=== PATIENT | male | born 1995 | race Caucasian/White ===

== ENCOUNTER 2020-02-13 18:18 | Emergency (ER) | payer SELFPAY ==
[~2020-02-13] VITALS: Ht 180.3 cm; Wt 72.7 kg
[~2020-02-13 18:18] MED LIST: ATIVAN2 MG OR; BENADRYL25 MG OR; CATAPRES0.2 MG PO; CLONIDINE0.1 MG PO; DIVALPROEX500 MG PO; GEODON60 MG OR; LEVOTHROID50 MCG PO; LEVOTHYROXIN50 MC1 PO; LITHIUM CARB300 MG PO; RISPERDAL3 MG OR; SEROQUEL XR150 MG PO; SEROQUEL100 MG PO; ZOFRAN4 MG/TAB PO
[2020-02-13 19:55] LABS: IMMATURE GRANULOCYTES 0.3 % (0.0-5.0); MEAN CELL VOLUME 86.5 fL CALC (80.0-100.0); MEAN CORPUSCULAR HGB 30.3 pG CALC (26.0-32.0); NEUT# 6.26 thou/uL (1.82-7.42); RED BLOOD COUNT 4.23 mill/uL (4.70-6.10); RED CELL DISTRI WIDTH 11.9 % (11.5-15.5)
[2020-02-13 19:58] LABS: HEMATOCRIT 36.6 % (39.0-50.0); HEMOGLOBIN 12.8 g/dl (14.0-18.0)
[2020-02-13 20:12] LABS: ALBUMIN 4.5 g/dL (3.2-5.0); ALKALINE PHOSPHATASE 69 u/l (38-126); AMYLASE 62 u/l (30-110); ANION GAP 10 (6-22 (CALC)); BUN 17 mg/dL (9-20); BUN/CREATININE RATIO 22 (12-20 (CALC)); CARBON DIOXIDE 25 mmol/l (22-30); CHLORIDE 103 mmol/l (95-108); CREATININE 0.8 mg/dL (0.7-1.3); GFR > 60 ML/MIN (>=60 (CALC)); GFR FOR AFR.AMER. > 60 ML/MIN (>=60 (CALC)); LIPASE 67 u/l (23-300); POTASSIUM 3.4 mmol/l (3.5-5.1); SGOT/AST 28 u/l (17-59); SODIUM 135 mmol/l (137-146)
[2020-02-13 20:16] LABS: BILIRUBIN, TOTAL 0.9 mg/dL (0.0-1.4)
[2020-02-13] MEDS ORDERED: PHENERGAN25 MG/TAB PO (21:06)
[2020-02-13 21:34] VITALS: BP 106/55
== END 2020-02-13 21:34 | disposition home or self-care (01) | DRG 392 ==
LOC: ED 18:18
PROVIDERS: Family Medicine
DX: A08.4 Viral intestinal infection, unspecified (principal); F17.200 Nicotine dependence, unspecified, uncomplicated

== ENCOUNTER → 2021-08-03 | Day surgery (SDC) | payer SELFPAY ==
[~2021-08-03] VITALS: Ht 190.5 cm; Wt 72.0 kg
[~2021-08-03] MED LIST changes: +Levaquin PO; +PERCOCET 5/321 COMBO PO; +PHENERGAN25 MG/TAB PO; +TYLENOL500 MG PO
[2021-08-03 06:24] LABS: HEMATOCRIT 41.7 % (39.0-50.0); HEMOGLOBIN 14.6 g/dl (14.0-18.0); IMMATURE GRANULOCYTES 0.2 % (0.0-5.0); MEAN CELL VOLUME 88.5 fL CALC (80.0-100.0); NEUT# 12.67 thou/uL (1.82-7.42); RED BLOOD COUNT 4.71 mill/uL (4.70-6.10); RED CELL DISTRI WIDTH 12.3 % (11.5-15.5)
[2021-08-03 06:40] LABS: ALKALINE PHOSPHATASE 65 u/l (38-126); AMYLASE 64 u/l (30-110); ANION GAP 14 (6-22 (CALC)); BILIRUBIN, TOTAL 0.9 mg/dL (0.0-1.4); BUN 15 mg/dL (9-20); BUN/CREATININE RATIO 15 (12-20 (CALC)); CARBON DIOXIDE 20 mmol/l (22-30); CHLORIDE 106 mmol/l (95-108); ETHYL ALCOHOL 0 mg/dl (0-30); GFR > 60 ML/MIN (>=60 (CALC)); GFR FOR AFR.AMER. > 60 ML/MIN (>=60 (CALC)); LIPASE 88 u/l (23-300); POTASSIUM 3.5 mmol/l (3.5-5.1); SGOT/AST 27 u/l (17-59); SODIUM 138 mmol/l (137-146); TOTAL PROTEIN 6.9 g/dL (6.3-8.2)
[2021-08-03 09:22] LABS: URINE BILIRUBIN - DIPSTICK NEGATIVE (NEGATIVE); URINE BLOOD DIPSTICK NEGATIVE (NEGATIVE); URINE COLOR YELLOW; URINE GLUCOSE - DIPSTICK NEGATIVE (NEGATIVE); URINE KETONE 40 mg/dL (NEGATIVE); URINE LEUK ESTERASE NEGATIVE (NEGATIVE); URINE PROTEIN - DIPSTICK NEGATIVE (NEG-TRACE); URINE SPECIFIC GRAVITY 1.015; URINE UROBILINOGEN - DIPSTICK 0.2 E.U./dL (0.2)
[2021-08-03 09:23] LABS: URINE NITRITE - DIPSTICK NEGATIVE (Negative)
[2021-08-03 15:19] VITALS: BP 116/59
== END | disposition home or self-care (01) | DRG 343 ==
LOC: ED 05:37 → ED-I 08:00 → ED 08:41 → ORM 08:42
PROVIDERS: ATTEND Surgery
PROC: 0DTJ4ZZ Resection of Appendix, Percutaneous Endoscopic Approach (ICD-10-PCS; principal; 2021-08-03)
DX: K37 Unspecified appendicitis (principal); F31.9 Bipolar disorder, unspecified; F17.200 Nicotine dependence, unspecified, uncomplicated
CPT/HCPCS: J0131; Q9967

== ENCOUNTER 2021-08-11 13:15 | Emergency (ER) | payer SELFPAY ==
[~2021-08-11] VITALS: Ht 190.5 cm; Wt 72.7 kg
[~2021-08-11 13:15] MED LIST changes: -Levaquin PO; -TYLENOL500 MG PO
[2021-08-11] MEDS ORDERED: TYLENOL500 MG PO (14:03)
[2021-08-11 14:06] LABS: URINE BILIRUBIN - DIPSTICK NEGATIVE (NEGATIVE); URINE BLOOD DIPSTICK NEGATIVE (NEGATIVE); URINE COLOR YELLOW; URINE GLUCOSE - DIPSTICK NEGATIVE (NEGATIVE); URINE KETONE NEGATIVE (NEGATIVE); URINE LEUK ESTERASE NEGATIVE (NEGATIVE); URINE PH 8.5 (4.5-8.0); URINE PROTEIN - DIPSTICK NEGATIVE (NEG-TRACE); URINE SPECIFIC GRAVITY 1.015; URINE UROBILINOGEN - DIPSTICK 0.2 E.U./dL (0.2)
[2021-08-11 14:10] LABS: URINE NITRITE - DIPSTICK NEGATIVE (Negative)
[2021-08-11 14:22] LABS: IMMATURE GRANULOCYTES 0.1 % (0.0-5.0); MEAN CELL VOLUME 89.7 fL CALC (80.0-100.0); MEAN CORPUSCULAR HGB 30.6 pG CALC (26.0-32.0); MEAN CORPUSCULAR HGB CONC 34.1 g/dL CAL (32.0-36.0); NEUT# 5.66 thou/uL (1.82-7.42); RED BLOOD COUNT 4.57 mill/uL (4.70-6.10); RED CELL DISTRI WIDTH 12.5 % (11.5-15.5)
[2021-08-11 14:40] LABS: ALBUMIN 4.3 g/dL (3.2-5.0); ALKALINE PHOSPHATASE 52 u/l (38-126); AMYLASE 80 u/l (30-110); ANION GAP 13 (6-22 (CALC)); BILIRUBIN, TOTAL 0.5 mg/dL (0.0-1.4); BUN 12 mg/dL (9-20); BUN/CREATININE RATIO 15 (12-20 (CALC)); CARBON DIOXIDE 24 mmol/l (22-30); CHLORIDE 104 mmol/l (95-108); CREATININE 0.8 mg/dL (0.7-1.3); GFR > 60 ML/MIN (>=60 (CALC)); GFR FOR AFR.AMER. > 60 ML/MIN (>=60 (CALC)); LIPASE 49 u/l (23-300); POTASSIUM 3.5 mmol/l (3.5-5.1); SGOT/AST 27 u/l (17-59); SODIUM 137 mmol/l (137-146); TOTAL PROTEIN 7.6 g/dL (6.3-8.2)
[2021-08-11 14:44] LABS: ACT PARTIAL THROMBO TIME 25.6 SECONDS (20.0-32.5); INTERNATIONAL NORMALIZED RATIO 1.1 RATIO (0.7-1.3)
[2021-08-11] MEDS ORDERED: PERCOCET 5/321 COMBO PO (16:06)
[2021-08-11] MEDS ORDERED: Levaquin PO (16:06)
[2021-08-11 17:08] VITALS: BP 117/74
--- NOTE | 2021-08-13 13:12 | NUR ---
PRELIM BLOOD CULTURE SHOWS BACILLUS SPECIES IN 1 ANAEROBIC BOTTLE. PER MAHI IN LAB, THIS IS A CONTAMINANT.
== END 2021-08-11 17:08 | disposition home or self-care (01) | DRG 947 ==
LOC: ED 13:15
DX: G89.18 Other acute postprocedural pain (principal); J95.89 Other postprocedural complications and disorders of respiratory system, not elsewhere classified; J18.9 Pneumonia, unspecified organism; F17.200 Nicotine dependence, unspecified, uncomplicated; F31.9 Bipolar disorder, unspecified; Y83.6 Removal of other organ (partial) (total) as the cause of abnormal reaction of the patient, or of later complication, without mention of misadventure at the time of the procedure; Z88.0 Allergy status to penicillin; Z20.822 Contact with and (suspected) exposure to COVID-19
CPT/HCPCS: J1956; Q9967

== ENCOUNTER 2021-11-27 00:37 | Emergency (ER) | payer SELFPAY ==
[~2021-11-27] VITALS: Ht 190.5 cm; Wt 73.0 kg
[~2021-11-27 00:37] MED LIST changes: +Levaquin PO; +TYLENOL500 MG PO
[2021-11-27 01:11] LABS: HEMATOCRIT 41.6 % (39.0-50.0); HEMOGLOBIN 14.8 g/dl (14.0-18.0); IMMATURE GRANULOCYTES 0.6 % (0.0-5.0); MEAN CELL VOLUME 88.5 fL CALC (80.0-100.0); MEAN CORPUSCULAR HGB 31.5 pG CALC (26.0-32.0); MEAN CORPUSCULAR HGB CONC 35.6 g/dL CAL (32.0-36.0); NEUT# 9.86 thou/uL (1.82-7.42); RED BLOOD COUNT 4.7 mill/uL (4.70-6.10); RED CELL DISTRI WIDTH 11.8 % (11.5-15.5)
[2021-11-27 01:21] LABS: ALBUMIN 4.2 g/dL (3.2-5.0); AMYLASE 87 u/l (30-110); ANION GAP 12 (6-22 (CALC)); BILIRUBIN, TOTAL 0.3 mg/dL (0.0-1.4); BUN 11 mg/dL (9-20); BUN/CREATININE RATIO 16 (12-20 (CALC)); CARBON DIOXIDE 23 mmol/l (22-30); CHLORIDE 106 mmol/l (95-108); CREATININE 0.7 mg/dL (0.7-1.3); GFR > 60 ML/MIN (>=60 (CALC)); GFR FOR AFR.AMER. > 60 ML/MIN (>=60 (CALC)); LIPASE 50 u/l (23-300); POTASSIUM 3.5 mmol/l (3.5-5.1); SGOT/AST 28 u/l (17-59); SODIUM 137 mmol/l (137-146); TOTAL PROTEIN 7.8 g/dL (6.3-8.2)
[2021-11-27 01:22] LABS: ALKALINE PHOSPHATASE 86 u/l (38-126)
[2021-11-27 01:35] LABS: MYOGLOBIN 52 ng/mL (0 - 121)
[2021-11-27 03:22] LABS: URINE BILIRUBIN - DIPSTICK NEGATIVE (NEGATIVE); URINE BLOOD DIPSTICK TRACE-INTACT (NEGATIVE); URINE COLOR YELLOW; URINE GLUCOSE - DIPSTICK NEGATIVE (NEGATIVE); URINE KETONE TRACE mg/dL (NEGATIVE); URINE LEUK ESTERASE NEGATIVE (NEGATIVE); URINE PROTEIN - DIPSTICK NEGATIVE (NEG-TRACE); URINE SPECIFIC GRAVITY 1.015; URINE UROBILINOGEN - DIPSTICK 0.2 E.U./dL (0.2)
[2021-11-27 03:26] LABS: URINE NITRITE - DIPSTICK NEGATIVE (Negative)
[2021-11-27] MEDS ORDERED: NAPROXEN500 MG PO (03:46)
[2021-11-27] MEDS ORDERED: CYCLOBENZAPRINE10 MG PO (03:46)
[2021-11-27] MEDS ORDERED: CARAFATE PO (03:46)
[2021-11-27] MEDS ORDERED: PREVACID30 M3 PO (03:46)
[2021-11-27 04:02] VITALS: BP 129/87
== END 2021-11-27 04:15 | disposition home or self-care (01) | DRG 392 ==
LOC: ED 00:37
PROVIDERS: Emergency Medicine
DX: K29.70 Gastritis, unspecified, without bleeding (principal); M48.061 Spinal stenosis, lumbar region without neurogenic claudication; F19.10 Other psychoactive substance abuse, uncomplicated; F17.210 Nicotine dependence, cigarettes, uncomplicated; F31.9 Bipolar disorder, unspecified
CPT/HCPCS: Q9967; S0164

== ENCOUNTER 2021-11-28 20:46 | Emergency (ER) | payer SELFPAY ==
[~2021-11-28] VITALS: Ht 190.5 cm; Wt 75.0 kg
[2021-11-28] VITALS (8 sets, daily range): BP systolic 114–124; BP diastolic 70–85
[~2021-11-28 20:46] MED LIST changes: +CARAFATE PO; +CYCLOBENZAPRINE10 MG PO; +NAPROXEN500 MG PO; +PREVACID30 M3 PO
[2021-11-28 21:22] LABS: HEMOGLOBIN 14.6 g/dl (14.0-18.0); IMMATURE GRANULOCYTES 0.5 % (0.0-5.0); MEAN CELL VOLUME 89.1 fL CALC (80.0-100.0); MEAN CORPUSCULAR HGB 31.7 pG CALC (26.0-32.0); MEAN CORPUSCULAR HGB CONC 35.6 g/dL CAL (32.0-36.0); NEUT# 6.75 thou/uL (1.82-7.42); RED BLOOD COUNT 4.6 mill/uL (4.70-6.10); RED CELL DISTRI WIDTH 12.2 % (11.5-15.5)
[2021-11-28 21:23] LABS: URINE BILIRUBIN - DIPSTICK NEGATIVE (NEGATIVE); URINE BLOOD DIPSTICK SMALL (NEGATIVE); URINE COLOR YELLOW; URINE GLUCOSE - DIPSTICK NEGATIVE (NEGATIVE); URINE KETONE NEGATIVE (NEGATIVE); URINE LEUK ESTERASE NEGATIVE (NEGATIVE); URINE PROTEIN - DIPSTICK NEGATIVE (NEG-TRACE); URINE SPECIFIC GRAVITY 1.025
[2021-11-28 21:24] LABS: URINE NITRITE - DIPSTICK NEGATIVE (Negative)
[2021-11-28 21:31] LABS: URINE WBC 0-2 WBC/hpf (0-5)
[2021-11-28 21:34] LABS: ALKALINE PHOSPHATASE 81 u/l (38-126); AMYLASE 94 u/l (30-110); ANION GAP 15 (6-22 (CALC)); BILIRUBIN, TOTAL 0.2 mg/dL (0.0-1.4); BUN 14 mg/dL (9-20); BUN/CREATININE RATIO 16 (12-20 (CALC)); CARBON DIOXIDE 23 mmol/l (22-30); CHLORIDE 103 mmol/l (95-108); CREATININE 0.8 mg/dL (0.7-1.3); ETHYL ALCOHOL 0 mg/dl (0-30); GFR > 60 ML/MIN (>=60 (CALC)); GFR FOR AFR.AMER. > 60 ML/MIN (>=60 (CALC)); LIPASE 122 u/l (23-300); POTASSIUM 3.3 mmol/l (3.5-5.1); SGOT/AST 69 u/l (17-59); SODIUM 138 mmol/l (137-146); TOTAL PROTEIN 7.3 g/dL (6.3-8.2)
[2021-11-29] MEDS ORDERED: ZOFRAN4 MG/TAB PO (00:04)
[2021-11-29 00:08] VITALS: BP 115/78
== END 2021-11-29 00:16 | disposition home or self-care (01) | DRG 392 ==
LOC: ED 20:46
DX: R10.12 Left upper quadrant pain (principal); F15.10 Other stimulant abuse, uncomplicated; F12.10 Cannabis abuse, uncomplicated; E86.0 Dehydration; F31.9 Bipolar disorder, unspecified; F17.200 Nicotine dependence, unspecified, uncomplicated; Z91.14 Patient's other noncompliance with medication regimen; Z20.822 Contact with and (suspected) exposure to COVID-19
CPT/HCPCS: Q9967; S0164

== ENCOUNTER 2022-02-06 00:40 | Emergency (ER) | payer SELFPAY ==
[~2022-02-06] VITALS: Ht 190.5 cm; Wt 70.5 kg
[2022-02-06 00:51] VITALS: BP 137/84
[2022-02-06 01:00] VITALS: BP 134/86
[2022-02-06 01:15] VITALS: BP 119/74
[2022-02-06] MEDS ORDERED: HYDROCO/APAP1 TA9 PO (01:20)
[2022-02-06] MEDS ORDERED: CLINDAMYCIN300 M1 PO (01:20)
[2022-02-06 01:30] VITALS: BP 133/82
[2022-02-06 01:45] VITALS: BP 135/89
[2022-02-06 01:54] VITALS: BP 135/89
== END 2022-02-06 02:04 | disposition home or self-care (01) | DRG 603 ==
LOC: ED 00:40
PROC: 0H91XZZ Drainage of Face Skin, External Approach (ICD-10-PCS; principal; 2022-02-06)
DX: L02.01 Cutaneous abscess of face (principal); F31.9 Bipolar disorder, unspecified; F17.200 Nicotine dependence, unspecified, uncomplicated

== ENCOUNTER 2022-03-06 13:37 | Emergency (ER) | payer SELFPAY ==
[2022-03-06] VITALS (9 sets, daily range): BP systolic 114–131; BP diastolic 71–89
[~2022-03-06] VITALS: Ht 190.5 cm; Wt 72.7 kg
[~2022-03-06 13:37] MED LIST changes: +CLINDAMYCIN300 M1 PO; +HYDROCO/APAP1 TA9 PO
[2022-03-06 15:08] LABS: HEMATOCRIT 38.3 % (39.0-50.0); HEMOGLOBIN 13.4 g/dl (14.0-18.0); IMMATURE GRANULOCYTES 0.2 % (0.0-5.0); MEAN CELL VOLUME 87.8 fL CALC (80.0-100.0); MEAN CORPUSCULAR HGB 30.7 pG CALC (26.0-32.0); NEUT# 13.62 thou/uL (1.82-7.42); RED BLOOD COUNT 4.36 mill/uL (4.70-6.10); RED CELL DISTRI WIDTH 12.6 % (11.5-15.5)
[2022-03-06 15:24] LABS: ALBUMIN 4.2 g/dL (3.2-5.0); ALKALINE PHOSPHATASE 80 u/l (38-126); ANION GAP 15 (6-22 (CALC)); BUN 9 mg/dL (9-20); BUN/CREATININE RATIO 12 (12-20 (CALC)); CARBON DIOXIDE 24 mmol/l (22-30); CHLORIDE 99 mmol/l (95-108); CREATININE 0.8 mg/dL (0.7-1.3); GFR FOR AFR.AMER. > 60 ML/MIN (>=60 (CALC)); GFR OTHER RACES > 60 ML/MIN (>=60 (CALC)); POTASSIUM 3.8 mmol/l (3.5-5.1); SGOT/AST 23 u/l (17-59); SODIUM 135 mmol/l (137-146); TOTAL PROTEIN 7.6 g/dL (6.3-8.2)
[2022-03-06 15:25] LABS: BILIRUBIN, TOTAL 1.1 mg/dL (0.0-1.4)
== END 2022-03-06 22:03 | disposition short-term general hospital (02) | DRG 121 ==
LOC: ED 13:37
PROVIDERS: Nurse Practitioner
DX: H05.012 Cellulitis of left orbit (principal); L03.211 Cellulitis of face; F17.210 Nicotine dependence, cigarettes, uncomplicated; J32.0 Chronic maxillary sinusitis; F31.9 Bipolar disorder, unspecified
CPT/HCPCS: Q9967

== ENCOUNTER 2022-12-09 05:14 | Emergency (ER) | payer SELFPAY ==
[~2022-12-09] VITALS: Ht 190.5 cm; Wt 86.0 kg
[2022-12-09 05:48] LABS: BASO% 0.5 % (0-3); EOS% 3.3 % (0-8); HEMATOCRIT 39.1 % (39.0-50.0); HEMOGLOBIN 12.9 g/dl (14.0-18.0); IMMATURE GRANULOCYTES 0.4 % (0.0-5.0); LYMPH% 26.6 % (15-41); MEAN CELL VOLUME 92.4 fL CALC (80.0-100.0); MEAN CORPUSCULAR HGB 30.5 pG CALC (26.0-32.0); MONO% 13.1 % (2-13); NEUT# 4.29 thou/uL (1.82-7.42); NEUT% 56.1 % (42-76); RED BLOOD COUNT 4.23 mill/uL (4.70-6.10); RED CELL DISTRI WIDTH 14.1 % (11.5-15.5)
[2022-12-09 05:57] LABS: ALBUMIN 4.8 g/dL (3.2-5.0); ALKALINE PHOSPHATASE 81 u/l (38-126); ANION GAP 13 (6-22 (CALC)); BUN 20 mg/dL (9-20); BUN/CREATININE RATIO 19 (12-20 (CALC)); CARBON DIOXIDE 25 mmol/l (22-30); CHLORIDE 104 mmol/l (95-108); CREATININE 1.1 mg/dL (0.7-1.3); GFR FOR AFR.AMER. > 60 ML/MIN (>=60 (CALC)); GFR OTHER RACES > 60 ML/MIN (>=60 (CALC)); POTASSIUM 3.6 mmol/l (3.5-5.1); SGOT/AST 33 u/l (17-59); SODIUM 138 mmol/l (137-146); TOTAL PROTEIN 8.3 g/dL (6.3-8.2)
[2022-12-09 05:59] LABS: BILIRUBIN, TOTAL 0.3 mg/dL (0.2-1.3)
[2022-12-09] MEDS ORDERED: METRONIDAZOLE500 MG PO (06:05)
[2022-12-09] MEDS ORDERED: SB CLOTRIMAZ1 % EX (06:05)
[2022-12-09] MEDS ORDERED: CLEOCIN300 MG PO (06:05)
[2022-12-09 06:25] VITALS: BP 113/64
--- NOTE | 2022-12-12 15:35 | NUR ---
Attempted to contact pt via phone multiple times regarding wound culture results and need for change in antibiotics. No answer and unable to leave voicemail message.
== END 2022-12-09 06:30 | disposition home or self-care (01) | DRG 728 ==
LOC: ED 05:14
PROVIDERS: Emergency Medicine
DX: N48.1 Balanitis (principal); F31.9 Bipolar disorder, unspecified; F17.200 Nicotine dependence, unspecified, uncomplicated
CPT/HCPCS: S0077